=== PATIENT | female | born 1955 | race Hispanic/Latino ===

== ENCOUNTER 2017-10-04 08:49 | Outpatient (CLI) | payer OTHER ==
--- NOTE | 2017-10-04 11:11 | RAD ---
3 VIEWS LUMBAR SPINE: Date: 10/04/17 INDICATION: SI joint dysfunction. FINDINGS: There is moderate to severe multilevel disc degenerative disease of the lumbar spine with very subtle thoracolumbar scoliosis. No acute fracture or subluxation is grossly evident. There is mild to moder ate SI joint osteoarthrosis. No definite erosive change is evident. No acute fracture is noted. IMPRESSION: 1. Moderate to severe disc degenerative disease of the lumbar spine. 2. 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 POS: [facility]
--- NOTE | 2017-10-04 11:12 | RAD ---
3 VIEWS SACROILIAC JOINTS: Date: 10/04/17 INDICATION: Sacroiliac joint dysfunction. COMPARISON: Lumbar spine radiographs performed same date. FINDINGS: There is mild to moderate osteoarthritic change of both SI joints. No subchondral erosive change is e vident. No acute fracture is demonstrated. IMPRESSION: Osteoarthrosis of the SI joints. POS: [facility]
== END 2017-10-04 08:50 | disposition home or self-care (01) ==
LOC: MADRAD 08:49
PROVIDERS: ATTEND General Practice
DX: M53.3 Sacrococcygeal disorders, not elsewhere classified (principal); M47.898 Other spondylosis, sacral and sacrococcygeal region; M47.896 Other spondylosis, lumbar region
CPT/HCPCS: 72100; 72202

== ENCOUNTER 2022-04-15 09:57 | Emergency (ER) | payer MEDICARE ==
[2022-04-15] MEDS ORDERED: Morphine 4 MG/ML VIAL ONE (10:13)
== END 2022-04-15 11:00 | disposition home or self-care (01) ==
LOC: MADERS 09:57
DX: S42.291A Other displaced fracture of upper end of right humerus, initial encounter for closed fracture (principal); I10 Essential (primary) hypertension; E03.9 Hypothyroidism, unspecified; K21.9 Gastro-esophageal reflux disease without esophagitis; M41.9 Scoliosis, unspecified; W18.09XA Striking against other object with subsequent fall, initial encounter
CPT/HCPCS: 23600; 96372; J2270

== ENCOUNTER 2023-06-06 16:56 | Emergency (ER) | payer MEDICARE | END 2023-06-06 18:15 | disposition home or self-care (01) | LOC: MADERS 16:56 | DX: S93.602A Unspecified sprain of left foot, initial encounter (principal); I10 Essential (primary) hypertension; X50.9XXA Other and unspecified overexertion or strenuous movements or postures, initial encounter ==

== ENCOUNTER 2023-09-19 16:52 | Outpatient (CLI) | payer MEDICARE | END 2023-09-19 16:53 | disposition home or self-care (01) | LOC: MADRAD 16:52 | PROVIDERS: ATTEND Internal Medicine Rheumatology | DX: M06.9 Rheumatoid arthritis, unspecified (principal) ==

== ENCOUNTER 2023-09-28 07:48 | Outpatient (CLI) | payer MEDICARE | END 2023-09-28 07:49 | disposition home or self-care (01) | LOC: MADCT 07:48 | PROVIDERS: ATTEND Registered Nurse | DX: R42 Dizziness and giddiness (principal); G93.9 Disorder of brain, unspecified | CPT/HCPCS: 70450 ==